=== PATIENT | male | born 1960 | race Caucasian/White ===

== ENCOUNTER 2018-11-22 07:37 | Day surgery (SDC) | payer BC ==
[2018-11-03 14:03] VITALS: BMI 22.1
[~2018-11-22 07:37] MED LIST: LACTATED RINGERS 1,000 ML IV SCH; LIDOCAINE 1% 20 ML VIAL (10MG/ML) FOR IV START INTRADERMA PRN
[2018-11-22 08:01] VITALS: TEMP 97.9
[2018-11-22] MEDS ORDERED: PROPOFOL 10 MG/ML 20 ML VIAL IV ONE (08:42)
--- NOTE | 2018-11-22 09:05 | P.GSHP ---
History of Present Illness H&P Date: 11/22/18 Chief Complaint: Screening colonoscopy This a 58-year-old male who presents today for screening colonoscopy. He denies a significant GI complaints. Past Medical History Past Medical History: Hyperlipidemia, Myocardial Infarction ([place]) Last Myocardial Infarction Date:: 2008 History of Any Multi-Drug Resistant Organisms: None Reported Past Surgical History: Heart Catheterization With Stent Past Anesthesia/Blood Transfusion Reactions: No Reported Reaction Date of Last Stent Placement:: 2008 Smoking Status: Current every day smoker - Past Family History Mother Family Medical History: No Reported History Medications and Allergies Home Medications Medication Instructions Recorded Confirmed Type Aspirin [Adult Low Dose Aspirin EC] 81 mg PO DAILY 11/03/18 11/22/18 History Atorvastatin [Lipitor] 80 mg PO DAILY 11/03/18 11/22/18 History Metoprolol Tartrate [Lopressor] 50 mg PO DAILY 11/03/18 11/22/18 History Allergies Allergy/AdvReac Type Severity Reaction Status Date / Time No Known Allergies Allergy Verified 11/22/18 07:47 Surgical - Exam Vital Signs Temp Pulse Resp BP Pulse Ox 97.9 F 57 L 16 147/78 99 11/22/18 07:57 11/22/18 07:57 11/22/18 07:57 11/22/18 07:57 11/22/18 07:57 - General well developed, no distress - Eyes PERRL - ENT normal pinna - Neck no masses - Respiratory normal expansion - Cardiovascular Rhythm: regular - Abdomen Abdomen: soft, non tender Assessment and Plan Assessment: We'll perform screening colonoscopy
--- NOTE | 2018-11-22 09:20 | P.OP ---
Date of Procedure: 11/22/18 Preoperative Diagnosis: Screening colonoscopy Postoperative Diagnosis: Normal colon Procedure(s) Performed: Colonoscopy Anesthesia: MAC Surgeon: Antoni Lee Pathology: none sent Condition: stable Disposition: PACU Description of Procedure: PROCEDURE: The patient was placed on the endoscopy table in the lateral position. Digital rectal examination was performed which revealed no abnormalities. The prostate was symmetrical without nodules. Flexible colonoscope was then placed in the patient's anus and passed throughout the entire colon. The ileocecal valve was visualized. The cecum, ascending, transverse, descending and sigmoid colon were normal. The rectum was normal as well. There were no masses, polyps or diverticula noted in the entire colon. SUMMARY OF FINDINGS: Normal colonoscopy.
[2018-11-22 09:36] VITALS: BP 112/75; PULSE 73; RESP 16
== END 2018-11-22 09:54 | disposition home or self-care (01) ==
LOC: ORWHC2ENDO 07:37
PROVIDERS: ATTEND Surgery
DX: Z12.11 Encounter for screening for malignant neoplasm of colon (principal); E78.5 Hyperlipidemia, unspecified; I25.2 Old myocardial infarction; F17.210 Nicotine dependence, cigarettes, uncomplicated; Z79.82 Long term (current) use of aspirin; Z79.899 Other long term (current) drug therapy; Z95.5 Presence of coronary angioplasty implant and graft
CPT/HCPCS: J2704; G0121; 45378

== ENCOUNTER → 2020-01-05 | Outpatient (CLI) | payer BC ==
--- NOTE | 2020-01-05 18:07 | CTL ---
EXAMINATION TYPE: CT Low Dose Lung DATE OF EXAM ORDERED: 01/05/2020 HISTORY: Z 87.891, personal history tobacco use. Lung cancer screening CT DLP: [address] CTDI: 1.64 mGy Automated exposure control for dose reduction was used. SCREENING VISIT: 1 COMPARISON: Chest x-ray 12/21/2019 TECHNIQUE: Low dose computed tomography scan was performed through the chest at 1 mm thick sections a nd reconstructed images in the coronal plane at [address] DIAGNOSTIC QUALITY: Satisfactory FINDINGS: LUNG NODULES: None. LUNGS: COPD: Severity: Severe Fibrosis: Severity: None Lymph nodes: None Other findings: There is bronchial wall thickening present RIGHT PLEURAL SPACE: Effusion: None Calcification: None Thickening: None Pneumothorax: None LEFT PLEURAL SPACE: Effusion: None Calcification: None Thickening: None Pneumothorax: None HEART: Heart Size: Small Coronary calcification: Mild Pericardial effusion: None OTHER FINDINGS: Upper abdomen: Unremarkable Bony thorax: Thoracic spondylosis. Degenerative disc changes in the lumbar spine. Anterior wedge comp ression L2 Supraclavicular region: Unremarkable Other: IMPRESSION: Negative FOLLOW UP CT CHEST RECOMMENDATION: [address] LUNG RAD: 1
== END | disposition home or self-care (01) ==
LOC: RADCTMAIN 17:13
PROVIDERS: ATTEND Internal Medicine Critical Care Medicine
DX: Z12.2 Encounter for screening for malignant neoplasm of respiratory organs (principal); Z87.891 Personal history of nicotine dependence

== ENCOUNTER → 2022-10-20 | Outpatient (CLI) | payer BC ==
--- NOTE | 2022-10-20 17:32 | CTL ---
EXAMINATION TYPE: CT Low Dose Lung DATE OF EXAM ORDERED: 10/20/2022 HISTORY: 61-year-old male Z87.891 Personal History of tobacco use. Current smoker with 40 pack-year h istory. Lung cancer screening CT DLP: 64.[address] CTDI: 1.6 mGy Automated exposure control for dose reduction was used. SCREENING VISIT: Follow-up after 2 1/2 years COMPARISON: 01/05/2020 TECHNIQUE: Low dose computed tomography scan was performed through the chest with coronal and sagitta l reconstructions. CT DIAGNOSTIC QUALITY: Satisfactory FINDINGS: Heart normal size without pericardial effusion. LAD and RCA coronary artery calcifications are presen t. Mild atherosclerotic arch calcifications within the chart. Branching anatomy. No thoracic lymphadenopathy by CT size criteria. Advanced centrilobular emphysema. Stable 6 mm right midlung pulmonary nodule, axial image 25. 4 mm right lower lobe pulmonary nodule, axial image 11 is unchanged. Strandy atelectasis or scarring in the lower lungs. No consolidation or pleural effusion. Tiny hiatal hernia. Stable 1.1 cm cyst right liver lobe. Probable ingested material within the stoma ch. Bones: Mild to moderate degenerative disc disease lower thoracic spine. Slight levoconvex curvature m id to lower thoracic spine. IMPRESSION: 1. LungRADS 2, benign; a couple stable pulmonary nodules on the right measuring up to 6 mm. No new pu lmonary nodules. 2. COPD with advanced emphysema. Recommend smoking cessation. CT LUNG RAD AND CT CHEST RECOMMENDATION: Lung-Rad 2 Benign Appearance or Behavior: Continue annual sc reening with LDCT in 12 months. S Modifier (other clinically significant findings): None
== END | disposition home or self-care (01) ==
LOC: RADCTMAIN 14:32
PROVIDERS: ATTEND Family Medicine
DX: Z12.2 Encounter for screening for malignant neoplasm of respiratory organs (principal); J43.9 Emphysema, unspecified; F17.210 Nicotine dependence, cigarettes, uncomplicated
CPT/HCPCS: 71271

== ENCOUNTER → 2022-11-18 | Outpatient (CLI) | payer SELFPAY ==
[2022-11-19 01:37] LABS: Basophils # (A) 0.12 X 10*3/uL (0.00-0.10); Basophils % (A) 1.2 %; Eosinophils # (A) 0.28 X 10*3/uL (0.04-0.35); Eosinophils % (A) 2.8 %; HCT 46.1 % (39.6-50.0); HGB 14.9 g/dL (13.0-17.0); Immature Grans, Automated 0.3 %; Lymphocytes # (A) 2.29 X 10*3/uL (0.90-5.00); Lymphocytes % (A) 22.9 %; MCHC 32.3 g/dL (32.0-37.0); MCV 95.8 fL (80.0-97.0); Mean Platelet Volume 9.3 fL (9.5-12.2); Monocytes # (A) 0.87 X 10*3/uL (0.20-1.00); Monocytes % (A) 8.7 %; NRBC Per 100 WBC 0 /100 WBCS (0.0-0.0); Neutrophils # (A) 6.42 X 10*3/uL (1.80-7.70); Neutrophils % (A) 64.1 %; Platelet Count 309 X 10*3/uL (140-440); RBC 4.81 X 10*6/uL (4.40-5.60); RDW 11.9 % (11.5-14.5); WBC 10.01 X 10*3/uL (4.50-10.00)
== END | disposition home or self-care (01) ==
LOC: LABPAT 14:21
PROVIDERS: ATTEND Surgery
DX: Z01.818 Encounter for other preprocedural examination (principal); K40.90 Unilateral inguinal hernia, without obstruction or gangrene, not specified as recurrent
CPT/HCPCS: 85025; 93005

== ENCOUNTER 2022-11-25 05:57 | Day surgery (SDC) | payer BC ==
[2022-11-20 11:24] VITALS: BMI 21.9
[~2022-11-25 05:57] MED LIST changes: +ACETAMINOPHEN TAB 500 MG TAB PO PRN; +HEPARIN SODIUM,PORCINE/PF 5,000 UNIT/0.5 ML SYRINGE SQ PRN; -LACTATED RINGERS 1,000 ML IV SCH; -LIDOCAINE 1% 20 ML VIAL (10MG/ML) FOR IV START INTRADERMA PRN
[2022-11-25] MEDS ORDERED: LIDOCAINE 1% (10MG/ML) FOR IV START INTRADERMA PRN (06:19)
[2022-11-25] MEDS ORDERED: LACTATED RINGERS 1,000 ML IV SCH (06:19)
[2022-11-25] MEDS ORDERED: DEXAMETHASONE SOD PHOSPHATE 4 MG/ML 1 ML VIAL IV ONE (06:19)
[2022-11-25] MEDS ORDERED: ONDANSETRON 4 MG/2 ML VIAL IVP ONE (06:19)
[2022-11-25] MEDS ORDERED: LACTATED RINGERS 1,000 ML IV ONE ×3 (06:28→09:29)
[2022-11-25] MEDS ORDERED: HYDROmorphone 0.5 MG/0.5 ML SYRINGE IVP PRN (07:00)
[2022-11-25] MEDS ORDERED: MIDAZOLAM 2 MG/2 ML VIAL IVP ONE (07:08)
[2022-11-25] MEDS ORDERED: BUPIVACAIN-EPI 0.25%-1:200,000 30 ML VIAL SQ ONE ×2 (07:23→08:12)
[2022-11-25] MEDS ORDERED: NEOSTIGMINE 1 MG/ML 10 ML VIAL ONE (07:40)
[2022-11-25] MEDS ORDERED: PHENYLEPHRINE-0.9% NACL SYG 1,000 MCG/10 ML SYRINGE ONE (07:40)
[2022-11-25] MEDS ORDERED: GLYCOPYRROLATE 0.2 MG/ML 2 ML VIAL ONE (07:40)
[2022-11-25] MEDS ORDERED: LIDOCAINE 2% INJ 20 MG/ML (2 ML VIAL) ONE (07:40)
[2022-11-25] MEDS ORDERED: fentaNYL (PF) 50 MCG/ML 2 ML AMP ONE (07:40)
[2022-11-25] MEDS ORDERED: ROCURONIUM 10 MG/ML (5 ML VIAL) IV ONE (07:40)
[2022-11-25] MEDS ORDERED: KETAMINE 10 MG/ML 20 ML VIAL ONE (07:40)
[2022-11-25] MEDS ORDERED: PROPOFOL 10 MG/ML 20 ML VIAL IV ONE (07:40)
[2022-11-25] MEDS ORDERED: ePHEDrine 50 MG/ML 1 ML VIAL ONE (07:40)
[2022-11-25] MEDS ORDERED: SUCCINYLCHOLINE CHLORIDE 200 MG/10 ML VIAL IV ONE (07:40)
[2022-11-25 08:46] VITALS: TEMP 97.8
--- NOTE | 2022-11-25 08:48 | P.OP ---
Date of Procedure: 11/25/22 Preoperative Diagnosis: Left inguinal hernia Postoperative Diagnosis: Left inguinal hernia Procedure(s) Performed: Laparoscopic robotic-assisted repair of left inguinal hernia Excision of left cord lipoma Transversus abdominis plane block Anesthesia: VINICIO Surgeon: Antoni Lee Estimated Blood Loss (ml): 5 Pathology: other (Cord lipoma) Condition: stable Disposition: PACU Description of Procedure: The patient's placed on the operating table in the supine position. The patient received general anesthesia. The patient's abdomen was prepped and draped in usual sterile fashion. The skin was anesthetized 1% local Xylocaine at the incision sites. Using an 11 blade a skin incision was made at the umbilicus. The fascia was grasped with a Sophia and then the peritoneal cavity was entered with the Veress needle. Position of the Veress needle was confirmed with a p ositive drop test. After adequate insufflation a 5 mm trocar was placed into the peritoneal cavity. The Laparoscope was placed the peritoneal cavity. And a robotic 8 mm trocar was placed in the right lateral position and then another 8 mm robotic trochars placed in the left lateral position. The original 5 mm trocar was exchanged for a 12 mm trocar. A four-quadrant transversus abdominis plane block was then performed using 1% local Xylocaine. The patient was placed in reverse Trendelenburg and then the patient was docked to the robot. Next the peritoneum over top of the hernia was incised and then using blunt and sharp dissection and electrocautery the hernia sac was dissected free from the floor of the inguinal canal. The cord lipoma was dissected free and sent to pathology. The hernia sac was completely reduced into the peritoneal cavity. And then using the Pro supervisor car and yard mesh the hernia was repaired. The peritoneum was then sutured with 20V lock suture. The patient was then undocked the robot. The needle was withdrawn from the peritoneal cavity. The umbilical trocar site was closed with 0 Ethibond suture. The skin was closed interrupted 3-0 Monocryl suture. Dermabond dressing was applied. Patient was sent to recovery in stable condition.
[2022-11-25 10:32] VITALS: RESP 18
[2022-11-25 10:33] VITALS: BP 114/59; PULSE 70
--- NOTE | 2022-11-27 19:26 | P.ANPRN ---
Procedure Note - Anesthesia - Nerve Block Performed Bilateral Erector Spinae Single Time Out Performed: Yes Date of Procedure: 11/25/22 Procedure Start Time: 07:08 Procedure Stop Time: 07:15 Location of Patient: PreOp Indication: Acute Post-Operative Pain, Requested by Surgeon Sedation Type: Sedate with meaningful contact maintained Preparation: Sterile Prep Position: Prone Needle Types: Pajunk Needle Gauge: 21 Ultrasound used to visualize needle placement: Yes Ultrasound used to observe medication spread: Yes Blood Aspirated: No Pain Paresthesia on Injection Noted: No Resistance on Injection: Normal Image Stored and Saved: Yes Events: Uneventful and Well Tolerated (Ropivacaine 0.5% 15 mL plus normal saline 10 mL plus dexamethasone 4 Mg Given at L1 bilaterally)
== END 2022-11-25 10:48 | disposition home or self-care (01) ==
LOC: OR 05:57
PROVIDERS: ATTEND Surgery
DX: K40.90 Unilateral inguinal hernia, without obstruction or gangrene, not specified as recurrent (principal); D17.6 Benign lipomatous neoplasm of spermatic cord; I25.10 Atherosclerotic heart disease of native coronary artery without angina pectoris; I10 Essential (primary) hypertension; E78.5 Hyperlipidemia, unspecified; Z95.5 Presence of coronary angioplasty implant and graft; J45.909 Unspecified asthma, uncomplicated; F17.210 Nicotine dependence, cigarettes, uncomplicated; Z79.02 Long term (current) use of antithrombotics/antiplatelets; Z79.899 Other long term (current) drug therapy; Z98.890 Other specified postprocedural states
CPT/HCPCS: 49505; 64461; 86900; 86901; 88304; 86850; C1781; J2250; J0330; J1100; J2710; J0690; J2405; J3010; J2370; J2704; J1644; J2001

== ENCOUNTER 2023-06-06 07:32 | Emergency (ER) | payer BC ==
[2023-06-06 07:38] VITALS: BP 147/85; PULSE 77; RESP 20; TEMP 98
[2023-06-06] MEDS ORDERED: GELATIN SPONGE,ABSORB (SMALL) 1 EACH SPONGE TOPICAL STA (07:48)
--- NOTE | 2023-06-06 07:53 | ED ---
General Adult HPI - General Chief complaint: Recheck/Abnormal Lab/Rx Stated complaint: fall, facial laceration Time Seen by Provider: 06/06/23 07:41 Source: patient, RN notes reviewed Mode of arrival: ambulatory Limitations: no limitations - History of Present Illness Initial comments: 62-year-old male presents emergency Department with chief complaint of wound recheck. Patient was seen yesterday Rikki Anderson for facial injury. Patient states he fell while both and some stairs. Patient was initially seen in urgent care and sent to the hospital for CT. Patient had sutures placed was states he still has an open wound in which she was told there was not enough tissue to suture. Patient states his been wheezing throughout the night. He denies any increasing pain no visual disturbance that is new. - Related Data Home Medications Medication Instructions Recorded Confirmed Aspirin [Adult Low Dose Aspirin EC] 81 mg PO DAILY 11/03/18 11/25/22 Atorvastatin [Lipitor] 80 mg PO HS 11/03/18 11/25/22 Metoprolol Tartrate [Lopressor] 50 mg PO HS 11/03/18 11/25/22 Previous Rx's Medication Instructions Recorded Acetaminophen Tab [Tylenol] 650 mg PO Q6H #30 tab 11/25/22 Docusate [Colace] 100 mg PO BID #20 capsule 11/25/22 Ibuprofen [Motrin] 600 mg PO Q6HR PRN #40 tab 11/25/22 oxyCODONE HCL [OxyIR] 5 mg PO Q6H PRN 3 Days #10 tab 11/25/22 Allergies Allergy/AdvReac Type Severity Reaction Status Date / Time No Known Allergies Allergy Verified 06/06/23 07:38 Review of Systems ROS Statement: Those systems with pertinent positive or pertinent negative responses have been documented in the HPI. ROS Other: All systems not noted in ROS Statement are negative. Past Medical History Past Medical History: Hyperlipidemia, Myocardial Infarction ([place]) Last Myocardial Infarction Date:: 2008 History of Any Multi-Drug Resistant Organisms: None Reported Past Surgical History: Heart Catheterization With Stent Past Anesthesia/Blood Transfusion Reactions: No Reported Reaction Date of Last Stent Placement:: 2008 Past Psychological History: No Psychological Hx Reported Smoking Status: Current every day smoker Past Alcohol Use History: Rare Past Drug Use History: None Reported - Past Family History Mother Family Medical History: Cancer General Exam Limitations: no limitations General appearance: alert, in no apparent distress Head exam: Present: atraumatic, normocephalic, normal inspection Eye exam: Present: PERRL, EOMI, periorbital swelling, periorbital tenderness, other (Extensive right-sided facial swelling, laceration noted there is wound with no active bleeding.). Absent: normal appearance, scleral icterus, conjunctival injection ENT exam: Present: normal exam, normal oropharynx, mucous membranes moist Neck exam: Present: normal inspection, full ROM. Absent: tenderness, meningismus, lymphadenopathy Respiratory exam: Present: normal lung sounds bilaterally. Absent: respiratory distress, wheezes, rales, rhonchi, stridor Cardiovascular Exam: Present: regular rate, normal rhythm, normal heart sounds. Absent: systolic murmur, diastolic murmur, rubs, gallop, clicks Neurological exam: Present: alert, oriented X3, CN II-XII intact, reflexes normal. Absent: motor sensory deficit Course Vital Signs 06/06/23 07:33 Temperature 98 F Pulse Rate 77 Respiratory 20 Rate Blood Pressure 147/85 O2 Sat by Pulse 98 Oximetry Medical Decision Making - Medical Decision Making Was pt. sent in by a medical professional or institution (, PA, ESTHETICIAN FACIALIST, urgent care, hospital, or longterm...) When possible be specific @ -No Did you speak to anyone other than the patient for history (EMS, parent, family, police, friend...)? What history was obtained from this source @ -No Did you review nursing and triage notes (agree or disagree)? Why? @ -I reviewed and agree with nursing and triage notes Were old charts reviewed (outside hosp., previous admission, EMS record, old EKG, old radiological studies, urgent care reports/EKG's, longterm records)? Report findings @ -No old charts were reviewed Differential Diagnosis (chest pain, altered mental status, abdominal pain women, abdominal pain men, vaginal bleeding, weakness, fever, dyspnea, syncope, headache, dizziness, GI bleed, back pain, seizure, CVA, palpatations, mental health, musculoskeletal)? @ -Facial laceration, open wound, facial contusion EKG interpreted by me (3pts min.). @ -None X-rays interpreted by me (1pt min.). @ -None done CT interpreted by me (1pt min.). @ -None done U/S interpreted by me (1pt. min.). @ -None done What testing was considered but not performed or refused? (CT, X-rays, U/S, labs)? Why? @ -CT was considered to though had complete at outside facility What meds were considered but not given or refused? Why? @ -None Did you discuss the management of the patient with other professionals (professionals i.e. Dr., PA, ESTHETICIAN FACIALIST, lab, RT, psych nurse, administrator social welfare, interface analyst, teacher, sheriff's officer, case management associate)? Give summary @ -No Was smoking cessation discussed for >3mins.? @ -No Was critical care preformed (if so, how long)? @ -No Were there social determinants of health that impacted care today? How? (Homelessness, low income, unemployed, alcoholism, drug addiction, transportation, low edu. Level, literacy, decrease access to med. care, mcc, rehab)? @ -No Was there de-escalation of care discussed even if they declined (Discuss DNR or withdrawal of care, Hospice)? DNR status @ -No What co-morbidities impacted this encounter? (DM, HTN, Smoking, COPD, CAD, Cancer, CVA, ARF, Chemo, Hep., AIDS, mental health diagnosis, sleep apnea, morbid obesity)? @ -None Was patient admitted / discharged? Hospital course, mention meds given and route, prescriptions, significant lab abnormalities, going to OR and other pertinent info. @ -Discharged there is no extensive bleeding or injury noted that was not repaired. Patient did have small puncture wound which Gelfoam was applied. Patient is up-to-date on his tetanus. Patient is discharged in stable condition. Undiagnosed new problem with uncertain prognosis? @ -No Drug Therapy requiring intensive monitoring for toxicity (Heparin, Nitro, Insulin, Cardizem)? @ -No Were any procedures done? @ -No Diagnosis/symptom? @ -Facial laceration Acute, or Chronic, or Acute on Chronic? @ -Acute Uncomplicated (without systemic symptoms) or Complicated (systemic symptoms)? @ -Uncomplicated Side effects of treatment? @ -No Exacerbation, Progression, or Severe Exacerbation? @ -No Poses a threat to life or bodily function? How? (Chest pain, [place], [place], pneumonia, PE, COPD, DKA, ARF, appy, cholecystitis, CVA, Diverticulitis, Homicidal, Suicidal, threat to staff... and all critical care pts) @ -No Disposition Clinical Impression: Fall, Open facial wound Disposition: HOME SELF-CARE Condition: Stable Instructions (If sedation given, give patient instructions): Acute Wound Care (ED) Additional Instructions: Please return to the Emergency Department if symptoms worsen or any other concerns. Is patient prescribed a controlled substance at d/c from ED?: No Referrals: Gautam Harvey DO [Primary Care Provider] - 1-2 days Time of Disposition: 07:53
== END 2023-06-06 08:11 | disposition home or self-care (01) ==
LOC: EC 07:32
DX: S01.81XA Laceration without foreign body of other part of head, initial encounter (principal); F17.200 Nicotine dependence, unspecified, uncomplicated; I25.2 Old myocardial infarction; E78.5 Hyperlipidemia, unspecified; Z79.82 Long term (current) use of aspirin; Z79.899 Other long term (current) drug therapy; W10.9XXA Fall (on) (from) unspecified stairs and steps, initial encounter
CPT/HCPCS: 99283

== ENCOUNTER 2023-08-27 09:05 | Day surgery (SDC) | payer BC ==
[~2023-08-27 09:05] MED LIST changes: -ACETAMINOPHEN TAB 500 MG TAB PO PRN; -HEPARIN SODIUM,PORCINE/PF 5,000 UNIT/0.5 ML SYRINGE SQ PRN; +LACTATED RINGERS 1,000 ML IV SCH; +LIDOCAINE 1% (10MG/ML) FOR IV START INTRADERMA PRN
[2023-08-27] MEDS ORDERED: LACTATED RINGERS 1,000 ML IV ONE ×2 (09:32)
[2023-08-27 09:35] VITALS: TEMP 98.4
[2023-08-27] MEDS ORDERED: LIDOCAINE 1% INJ 10MG/ML (20 ML MDV) ONE (10:01)
[2023-08-27] MEDS ORDERED: PROPOFOL 10 MG/ML 20 ML VIAL IV ONE (10:01)
--- NOTE | 2023-08-27 10:02 | P.GSHP ---
History of Present Illness H&P Date: 08/27/23 Chief Complaint: GI bleed This a 62-year-old male presents today for he colonoscopy. Patient is issues with GI bleed. Past Medical History Past Medical History: Hyperlipidemia, Hypertension, Myocardial Infarction ([place]) Additional Past Medical History / Comment(s): UNEXPLAINED WEIGHT LOSS. SEASONAL ALLERGIES Last Myocardial Infarction Date:: 2008 History of Any Multi-Drug Resistant Organisms: None Reported Past Surgical History: Heart Catheterization With Stent, Hernia Repair Additional Past Surgical History / Comment(s): INGUINAL HERNIA REPAIR, COLONOSCOPY Past Anesthesia/Blood Transfusion Reactions: No Reported Reaction Date of Last Stent Placement:: 2008 Smoking Status: Current every day smoker - Past Family History Mother Family Medical History: Cancer Medications and Allergies Home Medications Medication Instructions Recorded Confirmed Type Aspirin [Adult Low Dose Aspirin EC] 81 mg PO DAILY 11/03/18 08/26/23 History Atorvastatin [Lipitor] 80 mg PO HS 11/03/18 08/26/23 History Acetaminophen Tab [Tylenol] 650 mg PO Q6H #30 tab 11/25/22 08/26/23 Rx Ibuprofen [Motrin] 600 mg PO Q6HR PRN #40 tab 11/25/22 08/26/23 Rx Ergocalciferol [Vitamin D2 (1250 1,250 mcg PO LLANOS 08/26/23 08/26/23 History Mcg = [id number] Iu)] Losartan [Cozaar] 25 mg PO HS 08/26/23 08/26/23 History Metoprolol Tartrate [Lopressor] 25 mg PO BID 08/26/23 08/26/23 History Montelukast [Singulair] 10 mg PO HS 08/26/23 08/26/23 History Allergies Allergy/AdvReac Type Severity Reaction Status Date / Time No Known Allergies Allergy Verified 08/26/23 08:54 Surgical - Exam Vital Signs Temp Pulse Resp BP Pulse Ox 98.4 F 84 18 130/68 94 L 08/27/23 09:31 08/27/23 09:31 08/27/23 09:31 08/27/23 09:31 08/27/23 09:31 - General well developed, well nourished, no distress - Eyes PERRL - ENT normal pinna - Neck no masses - Cardiovascular Rhythm: regular - Abdomen Abdomen: soft, non tender Assessment and Plan Assessment: GI bleed. We'll perform EGD and colonoscopy.
--- NOTE | 2023-08-27 10:23 | P.OP ---
Date of Procedure: 08/27/23 Preoperative Diagnosis: GI bleed Postoperative Diagnosis: Antral gastritis Mild diverticulosis Procedure(s) Performed: EGD Colonoscopy Anesthesia: MAC Surgeon: Antoni Lee Pathology: other (Antrum) Condition: stable Disposition: PACU Description of Procedure: The patient's placed on the endoscopy table in the lateral position. He received IV sedation. The gastro-/oropharynx passed in the esophagus and stomach. Scope some placed through the pylorus. The first and second portion of the duodenum appeared normal. Scope was back the antrum this. Mildly inflamed. A biopsies performed. The scope was unretroflexed and remainder the stomach appeared normal. The GE junction was at 40 cm the distal esophagus appeared normal. Proximal esophagus appeared normal. Scope withdrawn for patient. Next digital rectal exam was performed. This revealed no abnormalities. The flexible colonoscope was then placed patient anus and passed throughout the entire colon. Ileocecal valve visualized. The cecum appeared normal. The ascending colon appeared normal. The transverse colon appeared normal. In the descending; a few scattered diverticuli. Scope summer back the rectum and this appeared normal. Scope withdrawn for patient.
[2023-08-27 11:04] VITALS: BP 102/69; PULSE 69; RESP 20
== END 2023-08-27 11:25 | disposition home or self-care (01) ==
LOC: ORWHC2ENDO 09:05
PROVIDERS: ATTEND Surgery
DX: K31.89 Other diseases of stomach and duodenum (principal); K29.50 Unspecified chronic gastritis without bleeding; K57.30 Diverticulosis of large intestine without perforation or abscess without bleeding; E78.5 Hyperlipidemia, unspecified; I10 Essential (primary) hypertension; I25.2 Old myocardial infarction; F17.200 Nicotine dependence, unspecified, uncomplicated; Z79.1 Long term (current) use of non-steroidal anti-inflammatories (NSAID); Z79.82 Long term (current) use of aspirin; Z79.891 Long term (current) use of opiate analgesic; Z79.899 Other long term (current) drug therapy; Z95.5 Presence of coronary angioplasty implant and graft; Z80.9 Family history of malignant neoplasm, unspecified; Z98.890 Other specified postprocedural states
CPT/HCPCS: 88305; 45378; 43239; J2001; J2704

== ENCOUNTER 2023-09-23 17:48 | Emergency (ER) | payer BC ==
[2023-09-23] MEDS ORDERED: LIDOCAINE 1% INJ 10MG/ML (20 ML MDV) SQ ONE (17:51)
[2023-09-23] MEDS ORDERED: DIPH,PERTUS(ACELL)TETVAC-LF 0.5 ML VIAL IM ONE (17:51)
--- NOTE | 2023-09-23 17:52 | ED ---
General Adult HPI - General Stated complaint: facial lac Time Seen by Provider: 09/23/23 17:51 Source: RN notes reviewed - History of Present Illness Initial comments: Exterior 2-year-old male with no significant past medical history presents the emergency department with a chief complaint of facial laceration. Patient reports that he was attempting to move a box from the attic when it hit him in the face. He denies any loss of consciousness.. Denies anticoagulant use. Denies, lightheadedness, headache, vision loss or vision changes. - Related Data Home Medications Medication Instructions Recorded Confirmed Aspirin [Adult Low Dose Aspirin EC] 81 mg PO DAILY 11/03/18 08/26/23 Atorvastatin [Lipitor] 80 mg PO HS 11/03/18 08/26/23 Ergocalciferol [Vitamin D2 (1250 1,250 mcg PO LLANOS 08/26/23 08/26/23 Mcg = 92573 Iu)] Losartan [Cozaar] 25 mg PO HS 08/26/23 08/26/23 Metoprolol Tartrate [Lopressor] 25 mg PO BID 08/26/23 08/26/23 Montelukast [Singulair] 10 mg PO HS 08/26/23 08/26/23 Previous Rx's Medication Instructions Recorded Acetaminophen Tab [Tylenol] 650 mg PO Q6H #30 tab 11/25/22 Ibuprofen [Motrin] 600 mg PO Q6HR PRN #40 tab 11/25/22 Allergies Allergy/AdvReac Type Severity Reaction Status Date / Time No Known Allergies Allergy Verified 08/26/23 08:54 Review of Systems ROS Statement: Those systems with pertinent positive or pertinent negative responses have been documented in the HPI. ROS Other: All systems not noted in ROS Statement are negative. Past Medical History Past Medical History: Hyperlipidemia, Hypertension, Myocardial Infarction ([place]) Additional Past Medical History / Comment(s): UNEXPLAINED WEIGHT LOSS. SEASONAL ALLERGIES Last Myocardial Infarction Date:: 2008 History of Any Multi-Drug Resistant Organisms: None Reported Past Surgical History: Heart Catheterization With Stent, Hernia Repair Additional Past Surgical History / Comment(s): INGUINAL HERNIA REPAIR, COLONOSCOPY Past Anesthesia/Blood Transfusion Reactions: No Reported Reaction Date of Last Stent Placement:: 2008 Smoking Status: Current every day smoker - Past Family History Mother Family Medical History: Cancer General Exam - General Exam Comments Initial Comments: General: Alert, in no acute distress Head: atraumatic normocephalic. Eyes PERRL, EOMI intact, mucous membranes moist, 2 cm laceration to right maxillary area. Respiratory: Lungs clear to auscultation bilaterally Cardiovascular: Heart rate regular rate and rhythm Abdominal: Soft without guarding or rebound Extremities: Normal inspection with full range of motion and normal capillary refill Neuroogic: alert and oriented 3, CN II-XII intact, able to ambulate with steady gait Skin: warm dry and intact with normal color Course Vital Signs 09/23/23 09/23/23 17:52 21:00 Temperature 98.3 F 98.0 F Pulse Rate 68 75 Respiratory 16 18 Rate Blood Pressure 153/79 135/80 O2 Sat by Pulse 95 97 Oximetry Procedures - Laceration Laceration #1 Consent Obtained: verbal consent Indication: laceration Site: face (right maxillary region ) Size (cm): 2 Description: linear Depth: simple, single layer Anesthetic Used: lidocaine 1% Anesthesia Technique: local infiltration Amount (mls): 10 Pre-repair: wound explored, irrigated extensively Type of Sutures: other Size of Sutures: 6-0 Number of Sutures: 6 Technique: simple, interrupted Complications: pain, bleeding, nerve injury Patient Tolerated Procedure: well, no complications Medical Decision Making - Medical Decision Making Was pt. sent in by a medical professional or institution (LEONOR Velasquez, ENGINEERING EXECUTIVE, urgent care, hospital, or [facility]...) When possible be specific @ -[No] Did you speak to anyone other than the patient for history (EMS, parent, family, police, friend...)? What history was obtained from this source @ -Patient Did you review nursing and triage notes (agree or disagree)? Why? @ -[I reviewed and agree with nursing and triage notes] Were old charts reviewed (outside hosp., previous admission, EMS record, old EKG, old radiological studies, urgent care reports/EKG's, [facility] records)? Report findings @ -[No old charts were reviewed] Differential Diagnosis (chest pain, altered mental status, abdominal pain women, abdominal pain men, vaginal bleeding, weakness, fever, dyspnea, syncope, headache, dizziness, GI bleed, back pain, seizure, CVA, palpatations, mental health, musculoskeletal)? @ -[not applicable] EKG interpreted by me (3pts min.). @ -[As above] X-rays interpreted by me (1pt min.). @ -[None done] CT interpreted by me (1pt min.). @ -[None done] U/S interpreted by me (1pt. min.). @ -[None done] What testing was considered but not performed or refused? (CT, X-rays, U/S, labs)? Why? @ -[None] What meds were considered but not given or refused? Why? @ -[None] Did you discuss the management of the patient with other professionals (professionals i.e. , PA, ENGINEERING EXECUTIVE, lab, RT, psych nurse, social services aide, tread booker, teacher, corporation officer, child welfare caseworker)? Give summary @ -[No] Was smoking cessation discussed for >3mins.? @ -[No] Was critical care preformed (if so, how long)? @ -[No] Were there social determinants of health that impacted care today? How? (Homelessness, low income, unemployed, alcoholism, drug addiction, transportation, low edu. Level, literacy, decrease access to med. care, custodial, rehab)? @ -[No] Was there de-escalation of care discussed even if they declined (Discuss DNR or withdrawal of care, Hospice)? DNR status @ -[No] What co-morbidities impacted this encounter? (DM, HTN, Smoking, COPD, CAD, Cancer, CVA, ARF, Chemo, Hep., AIDS, mental health diagnosis, sleep apnea, morbid obesity)? @ -[None] Was patient admitted / discharged? Hospital course, mention meds given and route, prescriptions, significant lab abnormalities, going to OR and other pertinent info. @ Discharged. This is a 62-year-old male who presents emergency Department with facial laceration. Patient had a thorough history and physical performed. 2 cm laceration to right maxillary area. Patient had 6 sutures placed which she tolerated well. Return precautions updated on tetanus vaccine. Discharged in stable condition. Case discussed with Dr. Fernández, [facility] who agrees with plan of care Undiagnosed new problem with uncertain prognosis? @ -[No] Drug Therapy requiring intensive monitoring for toxicity (Heparin, Nitro, Insulin, Cardizem)? @ -[No] Were any procedures done? @ -[No] Diagnosis/symptom? @ -Right facial lacertion Acute, or Chronic, or Acute on Chronic? @ -Acute Uncomplicated (without systemic symptoms) or Complicated (systemic symptoms)? @ -Uncomplicated Side effects of treatment? @ -[No] Exacerbation, Progression, or Severe Exacerbation? @ -[No] Poses a threat to life or bodily function? How? (Chest pain, [place], [place], pneumonia, PE, COPD, DKA, ARF, appy, cholecystitis, CVA, Diverticulitis, Homicidal, Suicidal, threat to staff... and all critical care pts) @ -Low likelihood Disposition Clinical Impression: Laceration Disposition: HOME SELF-CARE Condition: Stable Instructions (If sedation given, give patient instructions): Care For Your Stitches (DC), Laceration (ED) Additional Instructions: keep the area clean and dry Can sleep with the area open These return for removal in 7-10 days Is patient prescribed a controlled substance at d/c from ED?: No Referrals: Gautam Harvey DO [Primary Care Provider] - 1-2 days Time of Disposition: 21:00
[2023-09-23 22:04] VITALS: BP 135/80; PULSE 75; RESP 18; TEMP 98
== END 2023-09-23 21:50 | disposition home or self-care (01) ==
LOC: EC 17:48
DX: S01.411A Laceration without foreign body of right cheek and temporomandibular area, initial encounter (principal); E78.5 Hyperlipidemia, unspecified; I10 Essential (primary) hypertension; I25.2 Old myocardial infarction; F17.200 Nicotine dependence, unspecified, uncomplicated; Z79.82 Long term (current) use of aspirin; Z79.899 Other long term (current) drug therapy; Z23 Encounter for immunization; W22.8XXA Striking against or struck by other objects, initial encounter
CPT/HCPCS: 90715; 99282; 90471; 12011; J2001

== ENCOUNTER → 2023-10-21 | Outpatient (CLI) | payer BC ==
--- NOTE | 2023-10-22 10:19 | CTL ---
EXAMINATION TYPE: CT Low Dose Lung DATE OF EXAM: 10/21/2023 4:57 PM CLINICAL INDICATION:Male, 62 years old with history of R91.8 abn finding; CURRENT SMOKER 1 PACK A DAY X45 YEARS , history of tobacco use. COMPARISON: 10/20/2022.. TECHNIQUE: Multiple axial non-contrast scans were obtained from approximately the lung apices through the upper abdomen. Coronal and sagittal reformatted images were obtained. Low dose technique was uti lized. CT DLP: 62.1 mGycm, Automated exposure control for dose reduction was used. CT Contrast: Contrast used: None Oral contrast used: None FINDINGS: ======== Lack of intravenous contrast and low dose technique limits the evaluation of the vascular and soft ti ssue structures. LUNGS: No evidence of pulmonary fibrosis. No evidence of focal consolidation, pneumothorax or pleural effusion. Severe centrilobular emphysema changes are seen throughout the lungs. Nodules: RUL: None. RML: None. RLL: Similar right lower lobe 6 mm pulmonary nodule. Series 5 image 36. Stable 2 mm pulmonary nod ule series 5 image 47. GLORIA: None. LLL: None. AIRWAY: Patent and unremarkable. HEART: Size within normal limits. MEDIASTINUM: No gross evidence of adenopathy. VASCULATURE: Atherosclerotic calcifications are present throughout the aorta and its branches. MUSCULOSKELETAL: Mild disc degeneration changes are present throughout the thoracolumbar spine. SOFT TISSUES/LYMPH NODES: Unremarkable. LOWER NECK: No significant findings. UPPER ABDOMEN: No significant findings. IMPRESSION: 1. Stable right lower lobe pulmonary nodules. No new or enlarging pulmonary nodules. 2. Severe emphysema. CT LUNG RAD AND CT CHEST RECOMMENDATION: Lung-Rad 2 Benign Appearance or Behavior: Continue annual sc reening with LDCT in 12 months. S Modifier (other clinically significant findings): None Recommend smoking cessation (if current smoker), or continuation of smoking cessation (if prior smoke r). Annual screening for lung cancer with low-dose computed tomography is recommended in adults ages 55 to 77 years who have a 30 pack-year smoking history and currently smoke or have quit within the pa st 15 years. Screening should be discontinued once a person has not smoked for 15 years or develops a health problem that substantially limits life expectancy or the ability or willingness to have curat rey lung surgery. Lung rads 2021 [email or web address]
== END | disposition home or self-care (01) ==
LOC: RADCTMAIN 16:37
PROVIDERS: ATTEND Family Medicine
DX: Z12.2 Encounter for screening for malignant neoplasm of respiratory organs (principal); J43.2 Centrilobular emphysema; R91.8 Other nonspecific abnormal finding of lung field; F17.210 Nicotine dependence, cigarettes, uncomplicated
CPT/HCPCS: 71271